=== PATIENT | male | born 1960 | race African-American/Black ===

== ENCOUNTER 2017-03-20 03:29 | Emergency (ER) | payer OTHER ==
[~2017-03-20] VITALS: Ht 165.1 cm; Wt 96.4 kg
[~2017-03-20 03:29] MED LIST: ADVAIR HFA120 INHALA IH; ALBUTEROL SULF8.5 GM IH; ATARAX,VISTARIL25 MG PO; BENADRYL25 MG PO; COMBIVENT RESPIM4 GM IH; DOXYCYCLINE HY100 M3 PO; DURICEF500 MG PO; FOLIC ACID1 MG PO; LORAZEPAM2 MG PO; PREDNISONE10 MG PO; PREDNISONE20 MG PO; PROVENTIL HFA6.7 GM IH; ROXICET 5-3251 EACH PO; SPIRIVA RESPIMAT4 GM IH; THERAGRAN1 TABLET PO; VITAMIN B-1100 MG PO; XANAX0.5 MG PO; XANAX1 MG PO; ZITHROMAX Z-PA250 MG PO
[2017-03-20 04:24] LABS: HEMATOCRIT 42.2 % (38.0-50.0); MCH 30.5 PG (29.0-34.0); MCHC 33.6 G/DL (30.0-36.0); MCV 90.8 FL (86-99); MEAN PLAT.VOLUME 9.7 uM^3 (9.0-12.4); PLATELET COUNT 126 K/uL (156-360); RBC DIS.WIDTH-CV 13.8 % (11.8-14.6); RBC DIS.WIDTH-SD 46.5 % (39-53); RED BLOOD COUNT 4.65 M/uL (4.00-5.50); WHITE BLOOD COUNT 8.2 K/uL (4.1-10.2)
[2017-03-20 04:28] LABS: CARBON DIOXIDE (BICARBONATE) 29.8 MEQ/L (20-31)
[2017-03-20 04:34] LABS: CHLORIDE 100 mEq/L (99-109); POTASSIUM 3.5 mEq/L (3.7-5.4); SODIUM 137 mEq/L (136-147)
[2017-03-20 04:36] LABS: GLUCOSE 98 mg/dL (70-99)
[2017-03-20 04:37] LABS: ANION GAP 11 MEQ/L (2-14)
[2017-03-20 04:40] LABS: GFR ESTIMATE (CALCULATED) > 59 mL/min/
[2017-03-20 04:41] LABS: UREA NITROGEN (BUN) 9 mg/dL (9-23)
[2017-03-20 04:45] LABS: TROP-I INTERPRETATION NEGATIVE; TROPONIN-I < 0.01 ng/mL (0.0-0.30)
[2017-03-20] MEDS ORDERED: PREDNISONE20 MG PO (05:01)
[2017-03-20] MEDS ORDERED: PROVENTIL HFA6.7 GM IH (05:01)
[2017-03-20 05:23] VITALS: BP 148/99
== END 2017-03-20 05:25 | disposition home or self-care (01) ==
LOC: EME 03:29
PROVIDERS: Emergency Medicine
DX: J44.1 Chronic obstructive pulmonary disease with (acute) exacerbation (principal); F17.200 Nicotine dependence, unspecified, uncomplicated
CPT/HCPCS: 71020; 80048; 82803; 83605; 83880; 84484; 85027; 87040; 93005; 94640; 99281; 99284

== ENCOUNTER 2017-03-30 18:16 | Inpatient (IN) | payer OTHER ==
[~2017-03-30] VITALS: Ht 165.1 cm; Wt 95.2 kg
[2017-03-30 20:45] LABS: CARBON DIOXIDE (BICARBONATE) 32.1 MEQ/L (20-31)
[2017-03-30 20:50] LABS: CHLORIDE 99 mEq/L (99-109); POTASSIUM 4.2 mEq/L (3.7-5.4); SODIUM 143 mEq/L (136-147)
[2017-03-30 20:51] LABS: MCH 31.1 PG (29.0-34.0); MCHC 33.6 G/DL (30.0-36.0); MCV 92.5 FL (86-99); MEAN PLAT.VOLUME 9.6 uM^3 (9.0-12.4); RBC DIS.WIDTH-SD 47.7 % (39-53); RED BLOOD COUNT 4.54 M/uL (4.00-5.50); WHITE BLOOD COUNT 14.7 K/uL (4.1-10.2)
[2017-03-30 20:52] LABS: GLUCOSE 132 mg/dL (70-99)
[2017-03-30 20:53] LABS: ANION GAP 17 MEQ/L (2-14)
[2017-03-30 20:55] LABS: GFR ESTIMATE (CALCULATED) > 59 mL/min/
[2017-03-30 20:56] LABS: UREA NITROGEN (BUN) 16 mg/dL (9-23)
[2017-03-30 21:03] LABS: TROP-I INTERPRETATION NEGATIVE; TROPONIN-I < 0.01 ng/mL (0.0-0.30)
[2017-03-30 21:13] LABS: PLATELET COUNT 196 K/uL (156-360)
[2017-03-30] MEDS ORDERED: PREDNISONE10 MG PO (21:28)
[2017-03-30] MEDS ORDERED: TUDORZA PRESS400 MCG IH (21:28)
[2017-03-30 23:39] LABS: BASE EXCESS 0.5 mEq/L (-3 to +3); BICARBONATE 28.4 mEq/L (22-26); CARBOXY HGB 2.1 % (0-5); COMMENTS - BLOOD GASES A+C+; DEVICE HHFNC; FI02 50 %; METHEMOGLOBIN 1.3 % (0-1.5); O2 FLOW 35 L/MIN; PCO2 59 mm Hg (35-45); PO2 89 mm Hg (80-100); SITE LR
[2017-03-30 23:40] LABS: TOTAL RESP RATE 24 resp/min; pH 7.29 (7.35-7.45)
[2017-03-31] VITALS (19 sets, daily range): BP systolic 138–180; BP diastolic 8–105
[2017-03-31 01:47] LABS: BASE EXCESS 1.7 mEq/L (-3 to +3); BICARBONATE 30.5 mEq/L (22-26); CARBOXY HGB 2.1 % (0-5); PO2 72 mm Hg (80-100)
[2017-03-31 01:48] LABS: COMMENTS - BLOOD GASES A+C+; DEVICE 840 MASK VENT; FI02 35 %; MODE SPONT; PCO2 68 mm Hg (35-45); SITE RR; TOTAL RESP RATE 21 resp/min; pH 7.26 (7.35-7.45)
[2017-03-31 06:33] LABS: EOSINOPHIL (%) 0 % (0-5); HEMATOCRIT 38.5 % (38.0-50.0); IMMATURE GRANULOCYTE (%) 0.3 % (0.0-0.7); INSTRUMENT ABS NEUTROPHIL CT 12.1 K/uL; LYMPHOCYTE COUNT 0.3 K/uL (1.0-2.8); MCV 93.9 FL (86-99); MEAN PLAT.VOLUME 9.7 uM^3 (9.0-12.4); MONOCYTE (%) 5.9 % (3-12); MONOCYTE COUNT 0.8 K/uL (0-0.8); NEUTROPHIL (%) 91.5 % (45-76); NEUTROPHIL COUNT 12.1 K/uL (1.8-6.4); PLATELET COUNT 158 K/uL (156-360); RBC DIS.WIDTH-SD 48.5 % (39-53); WHITE BLOOD COUNT 13.3 K/uL (4.1-10.2)
[2017-03-31 06:47] LABS: PROTHROMBIN TIME 9.8 (9.2-11.2); PTT 28.7 (25-32)
[2017-03-31 06:54] LABS: METH RESISTANT S AUREUS PCR NEGATIVE (NEGATIVE)
[2017-03-31 06:55] LABS: PROBE CHECK PASS; SPECIMEN PROCESSING CONTROL PASS
[2017-03-31 06:58] LABS: ANION GAP 10 MEQ/L (2-14); CHLORIDE 102 MEQ/L (99-109); GFR ESTIMATE (CALCULATED) > 59 mL/min/; GLUCOSE 159 mg/dL (70-99); POTASSIUM 4.1 MEQ/L (3.7-5.4); SAMPLE HEMOLYSIS CHECK 0; SAMPLE ICTERIC CHECK 0; SAMPLE LIPEMIA CHECK 0; SODIUM 141 MEQ/L (136-147); UREA NITROGEN (BUN) 13 mg/dL (9-23)
[2017-03-31 11:03] LABS: INTERNAL CONTROL VALID? YES
[2017-04-01] VITALS (15 sets, daily range): BP systolic 78–175; BP diastolic 53–97
[2017-04-01 05:28] LABS: EOSINOPHIL (%) 0 % (0-5); IMMATURE GRANULOCYTE (%) 0.4 % (0.0-0.7); INSTRUMENT ABS NEUTROPHIL CT 7.4 K/uL; LYMPHOCYTE COUNT 0.2 K/uL (1.0-2.8); MCH 31.3 PG (29.0-34.0); MCHC 33.1 G/DL (30.0-36.0); MCV 94.7 FL (86-99); MEAN PLAT.VOLUME 10.1 uM^3 (9.0-12.4); MONOCYTE (%) 3.3 % (3-12); MONOCYTE COUNT 0.3 K/uL (0-0.8); NEUTROPHIL COUNT 7.4 K/uL (1.8-6.4); PLATELET COUNT 147 K/uL (156-360); RBC DIS.WIDTH-CV 13.5 % (11.8-14.6); RBC DIS.WIDTH-SD 47.4 % (39-53); RED BLOOD COUNT 4.12 M/uL (4.00-5.50); WHITE BLOOD COUNT 7.9 K/uL (4.1-10.2)
[2017-04-01 05:54] LABS: ANION GAP 6 MEQ/L (2-14); CHLORIDE 99 MEQ/L (99-109); GFR ESTIMATE (CALCULATED) > 59 mL/min/; GLUCOSE 134 mg/dL (70-99); MAGNESIUM 2.1 mg/dl (1.3-2.7); POTASSIUM 4.7 MEQ/L (3.7-5.4); SAMPLE HEMOLYSIS CHECK 0; SAMPLE ICTERIC CHECK 0; SAMPLE LIPEMIA CHECK 0; SODIUM 137 MEQ/L (136-147); UREA NITROGEN (BUN) 11 mg/dL (9-23)
[2017-04-02 00:45] VITALS: BP 159/100
[2017-04-02 04:58] LABS: EOSINOPHIL (%) 0 % (0-5); HEMATOCRIT 43.8 % (38.0-50.0); IMMATURE GRANULOCYTE (%) 0.6 % (0.0-0.7); IMMATURE GRANULOCYTE COUNT 0.1 K/uL; INSTRUMENT ABS NEUTROPHIL CT 8.9 K/uL; LYMPHOCYTE COUNT 0.3 K/uL (1.0-2.8); MCH 30.6 PG (29.0-34.0); MCHC 32.9 G/DL (30.0-36.0); MCV 93.2 FL (86-99); MEAN PLAT.VOLUME 10.2 uM^3 (9.0-12.4); MONOCYTE COUNT 0.4 K/uL (0-0.8); NEUTROPHIL (%) 92.2 % (45-76); NEUTROPHIL COUNT 8.9 K/uL (1.8-6.4); PLATELET COUNT 170 K/uL (156-360); RBC DIS.WIDTH-CV 13.1 % (11.8-14.6); RBC DIS.WIDTH-SD 45.1 % (39-53); WHITE BLOOD COUNT 9.7 K/uL (4.1-10.2)
[2017-04-02 05:00] VITALS: BP 160/98
[2017-04-02 05:09] LABS: CHLORIDE 100 mEq/L (99-109); POTASSIUM 4.4 mEq/L (3.7-5.4); SODIUM 138 mEq/L (136-147)
[2017-04-02 05:11] LABS: GLUCOSE 134 mg/dL (70-99)
[2017-04-02 05:13] LABS: ANION GAP 7 MEQ/L (2-14)
[2017-04-02 05:15] LABS: GFR ESTIMATE (CALCULATED) > 59 mL/min/
[2017-04-02 05:16] LABS: UREA NITROGEN (BUN) 17 mg/dL (9-23)
[2017-04-02 08:00] VITALS: BP 154/99
[2017-04-02 12:12] LABS: POINT-OF-CARE METER ID UU13113731
[2017-04-02 12:35] VITALS: BP 149/80
[2017-04-02 16:45] VITALS: BP 155/97
[2017-04-02 20:00] VITALS: BP 156/86
[2017-04-03 01:45] VITALS: BP 165/106
[2017-04-03 04:15] VITALS: BP 137/102
[2017-04-03] MEDS ORDERED: FOLIC ACID1 MG PO (08:13)
[2017-04-03] MEDS ORDERED: PREDNISONE10 M1 PO (08:13)
[2017-04-03] MEDS ORDERED: NICOTINE PATCH1 EAC1 TD (08:13)
[2017-04-03] MEDS ORDERED: Thiamine,Vitamin B1 PO (08:13)
== END 2017-04-03 09:00 | disposition left against medical advice (07) | DRG 189 ==
LOC: EME 18:16 → 4WEST 03-31 02:22 → EDOF 03-31 02:22 → 4WEST 03-31 04:59
PROVIDERS: Emergency Medicine; Hospitalist
PROC: 5A09357 Assistance with Respiratory Ventilation, Less than 24 Consecutive Hours, Continuous Positive Airway Pressure (ICD-10-PCS; principal; 2017-03-31)
DX: J96.01 Acute respiratory failure with hypoxia (principal); J96.02 Acute respiratory failure with hypercapnia; J44.0 Chronic obstructive pulmonary disease with (acute) lower respiratory infection; J18.9 Pneumonia, unspecified organism; J44.1 Chronic obstructive pulmonary disease with (acute) exacerbation; E87.2 Acidosis; E83.39 Other disorders of phosphorus metabolism; E86.0 Dehydration; E83.52 Hypercalcemia; F10.239 Alcohol dependence with withdrawal, unspecified; I10 Essential (primary) hypertension; F41.9 Anxiety disorder, unspecified; K21.9 Gastro-esophageal reflux disease without esophagitis; Z59.0 Homelessness; E66.9 Obesity, unspecified; Z68.34 Body mass index [BMI] 34.0-34.9, adult; F31.9 Bipolar disorder, unspecified; F17.210 Nicotine dependence, cigarettes, uncomplicated
CPT/HCPCS: 36600; 71010; 71020; 71275; 80048; 82803; 82948; 83605; 83735; 83880; 84100; 84484; 85025; 85027; 85610; 85730; 87040; 87070; 87076; 87185; 87205; 87449; 87641; 93005; 94002; 94640; 94640 76; 94644; 94799; 99202; 99281; 99285; J0456; J0692; J0696; J1650; J2060; J2930; J3370; J7050; J7512; J7644; S0028

== ENCOUNTER 2017-04-11 14:55 | Inpatient (IN) | payer OTHER ==
[~2017-04-11] VITALS: Ht 162.6 cm; Wt 90.2 kg
[~2017-04-11 14:55] MED LIST changes: +NICOTINE PATCH1 EAC1 TD; +PREDNISONE10 M1 PO; +TUDORZA PRESS400 MCG IH; +Thiamine,Vitamin B1 PO
[2017-04-11 15:05] LABS: BASE EXCESS -1.1 mEq/L (-3 to +3); BICARBONATE 28.9 mEq/L (22-26); CARBOXY HGB 5.3 % (0-5); METHEMOGLOBIN 1.1 % (0-1.5); PCO2 74 mm Hg (35-45); PO2 100 mm Hg (80-100)
[2017-04-11 15:06] LABS: COMMENTS - BLOOD GASES A+C+; DEVICE NRBM; O2 FLOW 15 L/MIN; SITE RR
[2017-04-11 15:32] LABS: EOSINOPHIL (%) 0.2 % (0-5); HEMATOCRIT 40.5 % (38.0-50.0); IMMATURE GRANULOCYTE (%) 0.7 % (0.0-0.7); IMMATURE GRANULOCYTE COUNT 0.1 K/uL; INSTRUMENT ABS NEUTROPHIL CT 8.7 K/uL; LYMPHOCYTE COUNT 1.2 K/uL (1.0-2.8); MCH 30.5 PG (29.0-34.0); MCHC 32.6 G/DL (30.0-36.0); MCV 93.5 FL (86-99); MONOCYTE (%) 11.2 % (3-12); MONOCYTE COUNT 1.3 K/uL (0-0.8); NEUTROPHIL (%) 76.8 % (45-76); NEUTROPHIL COUNT 8.7 K/uL (1.8-6.4); NRBC (%) 0.3 /100 WBC (0-0); PLATELET COUNT 212 K/uL (156-360); RBC DIS.WIDTH-CV 13.2 % (11.8-14.6); RBC DIS.WIDTH-SD 45.3 % (39-53); RED BLOOD COUNT 4.33 M/uL (4.00-5.50); WHITE BLOOD COUNT 11.3 K/uL (4.1-10.2)
[2017-04-11 15:55] LABS: CHLORIDE 91 mEq/L (99-109); POTASSIUM 5.5 mEq/L (3.7-5.4); SODIUM 126 mEq/L (136-147)
[2017-04-11 15:57] LABS: GLUCOSE 112 mg/dL (70-99)
[2017-04-11 15:58] LABS: ANION GAP 16 MEQ/L (2-14)
[2017-04-11 15:59] LABS: TOTAL BILIRUBIN 0.5 mg/dL (0.0-1.0)
[2017-04-11 16:00] LABS: SERUM ETHYL ALCOHOL 100 mg/dL
[2017-04-11 16:01] LABS: ALKALINE PHOSPHATASE 86 IU/L (3-129); GFR ESTIMATE (CALCULATED) > 59 mL/min/
[2017-04-11 16:02] LABS: UREA NITROGEN (BUN) 14 mg/dL (9-23)
[2017-04-11 16:07] LABS: TROP-I INTERPRETATION NEGATIVE; TROPONIN-I 0.08 ng/mL (0.0-0.30)
[2017-04-11 17:04] LABS: BASE EXCESS 1.1 mEq/L (-3 to +3); BICARBONATE 32.5 mEq/L (22-26); CARBOXY HGB 4.4 % (0-5); METHEMOGLOBIN 1.2 % (0-1.5); PO2 117 mm Hg (80-100)
[2017-04-11 17:05] LABS: COMMENTS - BLOOD GASES A+C+; DEVICE 980 PB MASK; FI02 80 %; MODE SPONT NIV; PCO2 89 mm Hg (35-45); PEEP 5 CM/H20; PRES. SUPPORT 12 CM/H2O; SITE RR; TOTAL RESP RATE 17 resp/min; pH 7.17 (7.35-7.45)
[2017-04-11 17:59] LABS: ADD MIUA? YES; BILIRUBIN NEGATIVE; BLOOD SMALL; COLOR YELLOW ((YELLOW)); GLUCOSE (STRIP) NEGATIVE; KETONES 5; LEUKOCYTES NEGATIVE; NITRITE NEGATIVE; PROTEIN (STRIP) 100; SPECIFIC GRAVITY 1.014 (1.000-1.030); UROBILINOGEN 0.2 MG/DL (0.2-1.0)
[2017-04-11 18:02] LABS: BACTERIA RARE /HPF; EPITHELIAL CELLS RARE /HPF; MUCUS 1+ /LPF; RED BLOOD CELLS 0-5 /HPF (0-5); UCUL ADDED? NO; WHITE BLOOD CELLS 0-5 /HPF (0-5)
[2017-04-11 18:12] LABS: COCAINE PRESUMPTIVE POSITIVE (150 ng/mL); METHAMPHETAMINE NEGATIVE (500 ng/mL); PHENCYCLIDINE NEGATIVE (25 ng/mL); THC CANNABINOIDS NEGATIVE (50 ng/mL)
[2017-04-11 18:13] LABS: ADD MEDTOX COMMENT Y; AMPHETAMINE NEGATIVE (500 ng/mL); BARBITURATES NEGATIVE (200 ng/mL); BENZODIAZEPINES PRESUMPTIVE POSITIVE (150 ng/mL); INTERNAL CONTROLS VALID? YES; METHADONE NEGATIVE (200 ng/mL); OPIATES (MORPHINE) NEGATIVE (100 ng/mL); OXYCODONE NEGATIVE (100 ng/mL); PROPOXYPHENE NEGATIVE (300 ng/mL); TRICYCLIC ANTIDEPRESSANTS NEGATIVE (300 ng/mL)
[2017-04-11 19:00] LABS: BENZODIAZEPINES, URINE SCREEN POSITIVE (200 ng/mL)
[2017-04-11 20:25] VITALS: BP 143/78
[2017-04-11 20:30] VITALS: BP 164/131
[2017-04-11 20:48] LABS: BASE EXCESS 4.8 mEq/L (-3 to +3); CARBOXY HGB 3.1 % (0-5); METHEMOGLOBIN 1.6 % (0-1.5)
[2017-04-11 20:49] LABS: COMMENTS - BLOOD GASES A+C+; DEVICE VENT; FI02 65 %; MECHANICAL RATE 20 resp/min; MODE A/C; PCO2 58 mm Hg (35-45); PEEP 5 CM/H20; PO2 83 mm Hg (80-100); SITE RR; TIDAL VOLUME 500 ML; TOTAL RESP RATE 20 resp/min; pH 7.35 (7.35-7.45)
[2017-04-11 21:30] VITALS: BP 129/67
[2017-04-11 21:37] LABS: INTER. NORMALIZED RATIO 1.1; PROTHROMBIN TIME 11.4 (9.2-11.2); PTT 27.9 (25-32)
[2017-04-11 21:57] LABS: BASE EXCESS 5.3 mEq/L (-3 to +3); BICARBONATE 31.9 mEq/L (22-26); CARBOXY HGB 3.1 % (0-5); METHEMOGLOBIN 1.7 % (0-1.5); PCO2 54 mm Hg (35-45); PO2 80 mm Hg (80-100); pH 7.38 (7.35-7.45)
[2017-04-11 21:58] LABS: COMMENTS - BLOOD GASES A+C+; DEVICE 980; FI02 60 %; MECHANICAL RATE 20 resp/min; MODE A/C; PEEP 10 CM/H20; SITE LR; TIDAL VOLUME 500 ML
[2017-04-11 21:59] LABS: ANION GAP 9 MEQ/L (2-14); CHLORIDE 91 MEQ/L (99-109); MAGNESIUM 1.9 mg/dl (1.3-2.7); POTASSIUM 5.3 MEQ/L (3.7-5.4); SAMPLE HEMOLYSIS CHECK 0; SAMPLE ICTERIC CHECK 0; SAMPLE LIPEMIA CHECK 0; SODIUM 127 MEQ/L (136-147); TOTAL BILIRUBIN 0.6 MG/DL (0.0-1.0)
[2017-04-11 22:00] VITALS: BP 144/79
[2017-04-11 22:01] LABS: METH RESISTANT S AUREUS PCR NEGATIVE (NEGATIVE)
[2017-04-11 22:05] LABS: ALKALINE PHOSPHATASE 74 IU/L (3-129); GFR ESTIMATE (CALCULATED) > 59 mL/min/; GLUCOSE 112 mg/dL (70-99); UREA NITROGEN (BUN) 11 mg/dL (9-23)
[2017-04-11 22:08] LABS: PROBE CHECK PASS; SPECIMEN PROCESSING CONTROL PASS
[2017-04-11 23:00] VITALS: BP 130/76
[2017-04-12] VITALS (22 sets, daily range): BP systolic 91–128; BP diastolic 63–92
[2017-04-12 01:44] LABS: POINT-OF-CARE METER ID UU14208751
[2017-04-12 04:47] LABS: MCH 30.5 PG (29.0-34.0); MCHC 33.2 G/DL (30.0-36.0); MCV 91.9 FL (86-99); NRBC (%) 0.5 /100 WBC (0-0); PLATELET COUNT 228 K/uL (156-360); RBC DIS.WIDTH-CV 13.1 % (11.8-14.6); RBC DIS.WIDTH-SD 44.2 % (39-53); RED BLOOD COUNT 4.46 M/uL (4.00-5.50); WHITE BLOOD COUNT 5.5 K/uL (4.1-10.2)
[2017-04-12 05:13] LABS: CHLORIDE 96 mEq/L (99-109); POTASSIUM 5.4 mEq/L (3.7-5.4)
[2017-04-12 05:15] LABS: TROP-I INTERPRETATION NEGATIVE; TROPONIN-I 0.03 ng/mL (0.0-0.30)
[2017-04-12 05:16] LABS: GLUCOSE 134 mg/dL (70-99)
[2017-04-12 05:17] LABS: ANION GAP 11 MEQ/L (2-14)
[2017-04-12 05:18] LABS: TOTAL BILIRUBIN 0.6 mg/dL (0.0-1.0)
[2017-04-12 05:19] LABS: ALKALINE PHOSPHATASE 77 IU/L (3-129); GFR ESTIMATE (CALCULATED) > 59 mL/min/
[2017-04-12 05:20] LABS: UREA NITROGEN (BUN) 11 mg/dL (9-23)
[2017-04-12 05:23] LABS: SODIUM 134 mEq/L (136-147)
[2017-04-12 11:45] LABS: HBSG INDEX 0.25
[2017-04-12 11:46] LABS: ANTI-HEPATITIS A VIRUS (IGM) Nonreactive; HAV INDEX 0.16; HPCA INDEX 0.07
[2017-04-12 11:47] LABS: ANTI-HEPATITIS B CORE (IGM) Nonreactive; HBC IgM INDEX 0.05
[2017-04-12 12:10] LABS: POINT-OF-CARE METER ID UU14208751
[2017-04-12 17:13] LABS: POINT-OF-CARE METER ID UU14208751; POINT-OF-CARE USER ID 606021424
[2017-04-12 23:44] LABS: POINT-OF-CARE METER ID UU13113803
[2017-04-13] VITALS (20 sets, daily range): BP systolic 91–130; BP diastolic 55–86
[2017-04-13 05:40] LABS: POINT-OF-CARE METER ID UU13113731
[2017-04-13 08:25] LABS: BASE EXCESS 8.8 mEq/L (-3 to +3); BICARBONATE 34.1 mEq/L (22-26); CARBOXY HGB 2.1 % (0-5); METHEMOGLOBIN 1.5 % (0-1.5); PO2 71 mm Hg (80-100); pH 7.46 (7.35-7.45)
[2017-04-13 08:26] LABS: COMMENTS - BLOOD GASES NAC+; CONTINUOUS POS AIRWAY PRESSURE 5 cm H2O; DEVICE 980; FI02 40 %; MODE SPONT; PCO2 48 mm Hg (35-45); PRES. SUPPORT 15 CM/H2O; SITE RR; TOTAL RESP RATE 21 resp/min
[2017-04-13 09:12] LABS: ANION GAP 5 MEQ/L (2-14); GFR ESTIMATE (CALCULATED) > 59 mL/min/; GLUCOSE 109 mg/dL (70-99); SAMPLE HEMOLYSIS CHECK 0; SAMPLE ICTERIC CHECK 0; SAMPLE LIPEMIA CHECK 0; SODIUM 138 MEQ/L (136-147); UREA NITROGEN (BUN) 12 mg/dL (9-23)
[2017-04-13 09:13] LABS: CHLORIDE 101 MEQ/L (99-109); MAGNESIUM 2.4 mg/dl (1.3-2.7); POTASSIUM 4.2 MEQ/L (3.7-5.4)
[2017-04-13 13:02] LABS: POINT-OF-CARE USER ID 606021424
[2017-04-13 17:31] LABS: POINT-OF-CARE METER ID UU14208751
[2017-04-14] VITALS (24 sets, daily range): BP systolic 91–147; BP diastolic 63–93
[2017-04-14 05:36] LABS: POINT-OF-CARE METER ID UU13113731
[2017-04-14 08:19] LABS: POINT-OF-CARE METER ID UU13113803
[2017-04-14 10:44] LABS: BASE EXCESS 6.6 mEq/L (-3 to +3); BICARBONATE 31.9 mEq/L (22-26); CARBOXY HGB 2.3 % (0-5); METHEMOGLOBIN 1.4 % (0-1.5); PCO2 47 mm Hg (35-45); pH 7.44 (7.35-7.45)
[2017-04-14 10:55] LABS: PO2 88 mm Hg (80-100); SITE LR
[2017-04-14 10:56] LABS: COMMENTS - BLOOD GASES NAC+; DEVICE 980; FI02 70 %; MECHANICAL RATE 20 resp/min; MODE A/C; PEEP 7.5 CM/H20; TIDAL VOLUME 500 ML; TOTAL RESP RATE 20 resp/min
[2017-04-14 11:16] LABS: GFR ESTIMATE (CALCULATED) > 59 mL/min/; UREA NITROGEN (BUN) 10 mg/dL (9-23)
[2017-04-14 11:56] LABS: POINT-OF-CARE METER ID UU13113731
[2017-04-14 18:06] LABS: POINT-OF-CARE METER ID UU13113731
[2017-04-15] VITALS (24 sets, daily range): BP systolic 0–160; BP diastolic 0–99
[2017-04-15 05:34] LABS: HEMATOCRIT 38.6 % (38.0-50.0); MCH 31.9 PG (29.0-34.0); MCHC 33.4 G/DL (30.0-36.0); MCV 95.5 FL (86-99); MEAN PLAT.VOLUME 9.6 uM^3 (9.0-12.4); PLATELET COUNT 161 K/uL (156-360); RBC DIS.WIDTH-CV 14.7 % (11.8-14.6); RBC DIS.WIDTH-SD 50.2 % (39-53); RED BLOOD COUNT 4.04 M/uL (4.00-5.50); WHITE BLOOD COUNT 7.8 K/uL (4.1-10.2)
[2017-04-15 06:04] LABS: ANION GAP 6 MEQ/L (2-14); CHLORIDE 104 MEQ/L (99-109); GFR ESTIMATE (CALCULATED) > 59 mL/min/; GLUCOSE 118 mg/dL (70-99); POTASSIUM 3.6 MEQ/L (3.7-5.4); SAMPLE HEMOLYSIS CHECK 0; SAMPLE ICTERIC CHECK 0; SAMPLE LIPEMIA CHECK 0; SODIUM 140 MEQ/L (136-147); UREA NITROGEN (BUN) 8 mg/dL (9-23)
[2017-04-15 06:06] LABS: POINT-OF-CARE METER ID UU13113748
[2017-04-15 12:36] LABS: MAGNESIUM 2.1 mg/dl (1.3-2.7)
[2017-04-15 13:16] LABS: POINT-OF-CARE METER ID UU13113748
[2017-04-15 18:33] LABS: POINT-OF-CARE METER ID UU13113748
[2017-04-16] VITALS (16 sets, daily range): BP systolic 117–153; BP diastolic 77–100
[2017-04-16 00:13] LABS: POINT-OF-CARE METER ID UU13113731
[2017-04-16 06:04] LABS: EOSINOPHIL (%) 5.4 % (0-5); EOSINOPHIL COUNT 0.3 K/uL (0-0.3); HEMATOCRIT 41.5 % (38.0-50.0); IMMATURE GRANULOCYTE (%) 0.3 % (0.0-0.7); INSTRUMENT ABS NEUTROPHIL CT 4.7 K/uL; LYMPHOCYTE COUNT 0.9 K/uL (1.0-2.8); MCH 30.2 PG (29.0-34.0); MCHC 31.8 G/DL (30.0-36.0); MEAN PLAT.VOLUME 9.8 uM^3 (9.0-12.4); MONOCYTE (%) 7.1 % (3-12); MONOCYTE COUNT 0.5 K/uL (0-0.8); NEUTROPHIL (%) 73.5 % (45-76); NEUTROPHIL COUNT 4.7 K/uL (1.8-6.4); PLATELET COUNT 160 K/uL (156-360); RBC DIS.WIDTH-CV 14.3 % (11.8-14.6); RBC DIS.WIDTH-SD 49.1 % (39-53); RED BLOOD COUNT 4.37 M/uL (4.00-5.50); WHITE BLOOD COUNT 6.4 K/uL (4.1-10.2)
[2017-04-16 06:20] LABS: POINT-OF-CARE METER ID UU14208751
[2017-04-16 06:22] LABS: ANION GAP 8 MEQ/L (2-14); CHLORIDE 105 MEQ/L (99-109); GFR ESTIMATE (CALCULATED) > 59 mL/min/; GLUCOSE 123 mg/dL (70-99); MAGNESIUM 2.2 mg/dl (1.3-2.7); POTASSIUM 4.1 MEQ/L (3.7-5.4); SAMPLE HEMOLYSIS CHECK 1; SAMPLE ICTERIC CHECK 0; SAMPLE LIPEMIA CHECK 0; SODIUM 143 MEQ/L (136-147); UREA NITROGEN (BUN) 6 mg/dL (9-23)
[2017-04-16 17:59] LABS: POINT-OF-CARE METER ID UU14208751
[2017-04-17] VITALS: BP 165/99
[2017-04-17 01:00] VITALS: BP 135/88
[2017-04-17 02:00] VITALS: BP 151/96
[2017-04-17 03:00] VITALS: BP 171/102
[2017-04-17 08:54] LABS: ANION GAP 8 MEQ/L (2-14); CHLORIDE 106 MEQ/L (99-109); GFR ESTIMATE (CALCULATED) > 59 mL/min/; GLUCOSE 98 mg/dL (70-99); MAGNESIUM 2.1 mg/dl (1.3-2.7); POTASSIUM 4.8 MEQ/L (3.7-5.4); SAMPLE HEMOLYSIS CHECK 0; SAMPLE ICTERIC CHECK 0; SAMPLE LIPEMIA CHECK 0; SODIUM 142 MEQ/L (136-147); UREA NITROGEN (BUN) 7 mg/dL (9-23)
[2017-04-17 10:07] LABS: HEMATOCRIT 43.7 % (38.0-50.0); MCHC 31.8 G/DL (30.0-36.0); MCV 94.2 FL (86-99); MEAN PLAT.VOLUME 9.4 uM^3 (9.0-12.4); PLATELET COUNT 149 K/uL (156-360); RBC DIS.WIDTH-CV 13.7 % (11.8-14.6); RED BLOOD COUNT 4.64 M/uL (4.00-5.50); WHITE BLOOD COUNT 7.1 K/uL (4.1-10.2)
[2017-04-17 10:53] LABS: ABS NEUTROPHIL COUNT 4.9; ANISOCYTOSIS 1+; BASOPHILS 1.8 %; EOSINOPHIL ABS CT 0.6; INSTRUMENT ABS NEUTROPHIL CT 4.6 K/uL; LYMPHOCYTES 16.1 % (15.0-45.0); MACROCYTES 1+; PLAT.SUFFICIENCY ADEQUATE; POIKILOCYTOSIS 1+; SEG.NEUTROPHILS 68.7 % (46.0-76.0)
[2017-04-17 19:00] VITALS: BP 133/88
[2017-04-17 23:00] VITALS: BP 155/98
[2017-04-18] VITALS (9 sets, daily range): BP systolic 114–142; BP diastolic 71–89
[2017-04-18 05:39] LABS: HEMATOCRIT 40.1 % (38.0-50.0); MCHC 32.4 G/DL (30.0-36.0); MCV 92.4 FL (86-99); MEAN PLAT.VOLUME 9.3 uM^3 (9.0-12.4); PLATELET COUNT 150 K/uL (156-360); RBC DIS.WIDTH-CV 13.5 % (11.8-14.6); RBC DIS.WIDTH-SD 45.7 % (39-53); RED BLOOD COUNT 4.34 M/uL (4.00-5.50); WHITE BLOOD COUNT 8.1 K/uL (4.1-10.2)
[2017-04-18 06:08] LABS: ANION GAP 8 MEQ/L (2-14); CHLORIDE 105 MEQ/L (99-109); GFR ESTIMATE (CALCULATED) > 59 mL/min/; GLUCOSE 96 mg/dL (70-99); POTASSIUM 3.6 MEQ/L (3.7-5.4); SAMPLE HEMOLYSIS CHECK 0; SAMPLE ICTERIC CHECK 0; SAMPLE LIPEMIA CHECK 0; SODIUM 141 MEQ/L (136-147); UREA NITROGEN (BUN) 8 mg/dL (9-23)
[2017-04-18 07:09] LABS: EOSINOPHIL COUNT 0.4 K/uL (0-0.3); IMMATURE GRANULOCYTE (%) 0.2 % (0.0-0.7); INSTRUMENT ABS NEUTROPHIL CT 5.1 K/uL; LYMPHOCYTE COUNT 1.8 K/uL (1.0-2.8); MONOCYTE (%) 8.9 % (3-12); MONOCYTE COUNT 0.7 K/uL (0-0.8); NEUTROPHIL (%) 63.4 % (45-76); NEUTROPHIL COUNT 5.1 K/uL (1.8-6.4)
[2017-04-19 02:37] VITALS: BP 166/100
[2017-04-19 06:32] LABS: EOSINOPHIL (%) 4.4 % (0-5); EOSINOPHIL COUNT 0.4 K/uL (0-0.3); IMMATURE GRANULOCYTE (%) 0.3 % (0.0-0.7); LYMPHOCYTE COUNT 1.9 K/uL (1.0-2.8); MCH 29.7 PG (29.0-34.0); MCHC 31.8 G/DL (30.0-36.0); MCV 93.2 FL (86-99); MEAN PLAT.VOLUME 9.9 uM^3 (9.0-12.4); MONOCYTE (%) 7.5 % (3-12); MONOCYTE COUNT 0.7 K/uL (0-0.8); NEUTROPHIL (%) 66.6 % (45-76); PLATELET COUNT 176 K/uL (156-360); RBC DIS.WIDTH-CV 13.9 % (11.8-14.6); RBC DIS.WIDTH-SD 47.2 % (39-53); RED BLOOD COUNT 4.72 M/uL (4.00-5.50)
[2017-04-19 07:01] LABS: ANION GAP 10 MEQ/L (2-14); CHLORIDE 105 MEQ/L (99-109); GFR ESTIMATE (CALCULATED) > 59 mL/min/; GLUCOSE 100 mg/dL (70-99); MAGNESIUM 2.1 mg/dl (1.3-2.7); SAMPLE HEMOLYSIS CHECK 0; SAMPLE ICTERIC CHECK 0; SAMPLE LIPEMIA CHECK 0; SODIUM 140 MEQ/L (136-147); UREA NITROGEN (BUN) 6 mg/dL (9-23)
[2017-04-19 07:07] LABS: POTASSIUM 4.4 MEQ/L (3.7-5.4)
[2017-04-19 08:01] VITALS: BP 171/101
[2017-04-19 12:17] VITALS: BP 144/78
[2017-04-19 17:01] VITALS: BP 142/89
[2017-04-19 19:15] VITALS: BP 142/90
== END 2017-04-19 22:49 | disposition left against medical advice (07) | DRG 208 ==
LOC: EME → EDBD 14:55 → EME 14:55 → EDOF 18:26 → 4WEST 18:26 → 5EAST 04-18 17:02
PROVIDERS: Emergency Medicine; Internal Medicine; Internal Medicine Critical Care Medicine; Internal Medicine Nephrology; Obstetrics & Gynecology
DX: J96.01 Acute respiratory failure with hypoxia (principal); J15.9 Unspecified bacterial pneumonia; F10.231 Alcohol dependence with withdrawal delirium; J44.0 Chronic obstructive pulmonary disease with (acute) lower respiratory infection; J44.1 Chronic obstructive pulmonary disease with (acute) exacerbation; I48.92 Unspecified atrial flutter; E66.9 Obesity, unspecified; Z68.33 Body mass index [BMI] 33.0-33.9, adult; E87.1 Hypo-osmolality and hyponatremia; E87.2 Acidosis; E87.5 Hyperkalemia; E87.6 Hypokalemia; E87.70 Fluid overload, unspecified; E87.8 Other disorders of electrolyte and fluid balance, not elsewhere classified; F14.10 Cocaine abuse, uncomplicated; F17.200 Nicotine dependence, unspecified, uncomplicated; F43.10 Post-traumatic stress disorder, unspecified; I10 Essential (primary) hypertension; Z87.828 Personal history of other (healed) physical injury and trauma; R60.0 Localized edema; R73.9 Hyperglycemia, unspecified
CPT/HCPCS: 36600; 71010; 80048; 80053; 80074; 80202; 81003; 82565; 82803; 82948; 83735; 83880; 83935; 84100; 84300; 84484; 84520; 84999; 85025; 85027; 85610; 85730; 87070; 87077; 87106; 87181; 87185; 87205; 87641; 93005; 93306; 93971; 94002; 94003; 94640; 94640 76; 94760; 94799; 99202; 99281; 99285; C9113; G0480; J0153; J0696; J1630; J1644; J1815; J1940; J2060; J2250; J2310; J2405; J2543; J2704; J2765; J2930; J3010; J3360; J3370; J3411; J3480; J7030; J7050; J7120; S0028

== ENCOUNTER 2018-01-13 13:01 | Emergency (ER) | payer OTHER ==
[~2018-01-13] VITALS: Ht 165.1 cm; Wt 82.9 kg
[2018-01-13 13:41] LABS: HEMATOCRIT 40.4 % (38.0-50.0); HEMOGLOBIN 13.9 G/DL (12.5-16.6); MCH 31.4 PG (29.0-34.0); MCHC 34.4 G/DL (30.0-36.0); MCV 91.2 FL (86-99); PLATELET COUNT 222 K/uL (156-360); RBC DIS.WIDTH-CV 14.4 % (11.8-14.6); RBC DIS.WIDTH-SD 47.9 % (39-53); RED BLOOD COUNT 4.43 M/uL (4.00-5.50); WHITE BLOOD COUNT 6.8 K/uL (4.1-10.2)
[2018-01-13 14:01] LABS: CHLORIDE 99 mEq/L (99-109); POTASSIUM 3.5 mEq/L (3.7-5.4); SODIUM 140 mEq/L (136-147)
[2018-01-13 14:03] LABS: GLUCOSE 98 mg/dL (70-99)
[2018-01-13 14:07] LABS: CREATININE 0.7 mg/dL (0.6-1.3); GFR ESTIMATE (CALCULATED) > 59 mL/min/ (58.99-99999)
[2018-01-13 14:08] LABS: UREA NITROGEN (BUN) 7 mg/dL (9-23)
[2018-01-13] MEDS ORDERED: PREDNISONE50 MG PO (15:15)
[2018-01-13] MEDS ORDERED: PROVENTIL HFA6.7 GM IH (15:15)
[2018-01-13 15:26] VITALS: BP 167/106
== END 2018-01-13 15:32 | disposition home or self-care (01) ==
LOC: EME 13:01
DX: J44.9 Chronic obstructive pulmonary disease, unspecified (principal); F32.9 Major depressive disorder, single episode, unspecified; F41.9 Anxiety disorder, unspecified; I50.9 Heart failure, unspecified; F17.200 Nicotine dependence, unspecified, uncomplicated
CPT/HCPCS: 71046; 80048; 85027; 94640; 99281; 99285; J7512; J7644

== ENCOUNTER 2018-01-24 20:42 | Inpatient (IN) | payer OTHER ==
[~2018-01-24] VITALS: Ht 165.1 cm; Wt 98.9 kg
[~2018-01-24 20:42] MED LIST changes: +PREDNISONE50 MG PO
[2018-01-24 21:07] LABS: BASE EXCESS 8.2 mEq/L (-3 to +3); BICARBONATE 35.5 mEq/L (22-26); CARBOXY HGB 6.3 % (0-5); METHEMOGLOBIN 1.2 % (0-1.5); PO2 84 mm Hg (80-100); pH 7.38 (7.35-7.45)
[2018-01-24 21:08] LABS: COMMENTS - BLOOD GASES C+; DEVICE NEBULIZER TX; O2 FLOW 6 L/MIN; PCO2 60 mm Hg (35-45); SITE RR; TOTAL RESP RATE 24 resp/min
[2018-01-24 22:01] LABS: HEMATOCRIT 40.9 % (38.0-50.0); HEMOGLOBIN 14.1 G/DL (12.5-16.6); MCH 33.1 PG (29.0-34.0); MCHC 34.5 G/DL (30.0-36.0); RBC DIS.WIDTH-SD 56.6 % (39-53); RED BLOOD COUNT 4.26 M/uL (4.00-5.50); WHITE BLOOD COUNT 7.2 K/uL (4.1-10.2)
[2018-01-24 22:09] LABS: ALBUMIN 3.8 g/dL (3.2-4.8)
[2018-01-24 22:10] LABS: CHLORIDE 102 mEq/L (99-109); POTASSIUM 3.6 mEq/L (3.7-5.4); SODIUM 143 mEq/L (136-147)
[2018-01-24 22:12] LABS: GLUCOSE 94 mg/dL (70-99)
[2018-01-24 22:15] LABS: ALKALINE PHOSPHATASE 74 IU/L (3-129)
[2018-01-24 22:16] LABS: CREATININE 0.7 mg/dL (0.6-1.3); GFR ESTIMATE (CALCULATED) > 59 mL/min/ (58.99-99999)
[2018-01-24 22:17] LABS: AST (GOT) 38 IU/L (2-34); UREA NITROGEN (BUN) 8 mg/dL (9-23)
[2018-01-24 22:18] LABS: ALT (GPT) 22 IU/L (3-49); TROP-I INTERPRETATION NEGATIVE; TROPONIN-I < 0.01 ng/mL (0.0-0.30)
[2018-01-24 22:37] LABS: HEMATOLOGY COMMENT 1 SN; PLAT.SUFFICIENCY DECREASED; PLATELET COUNT 105 K/uL (156-360)
[2018-01-25] VITALS (7 sets, daily range): BP systolic 129–182; BP diastolic 79–97
[2018-01-25] MEDS ORDERED: PREDNISONE50 MG PO (00:11)
[2018-01-25 01:58] LABS: URIC ACID 7.5 mg/dL (3.1-9.2)
[2018-01-25 02:25] LABS: C-REACTIVE PROTEIN 3.7 MG/L (0-10)
[2018-01-25 05:27] LABS: APPEARANCE CLEAR ((CLEAR)); BILIRUBIN NEGATIVE; BLOOD NEGATIVE; COLOR YELLOW ((YELLOW)); GLUCOSE (STRIP) >=500; KETONES 5; LEUKOCYTES NEGATIVE; NITRITE NEGATIVE; PROTEIN (STRIP) 30; SPECIFIC GRAVITY 1.033 (1.000-1.030); UCUL ADDED? NO
[2018-01-25 06:21] LABS: HEMATOCRIT 39.2 % (38.0-50.0); HEMOGLOBIN 12.8 G/DL (12.5-16.6); MCH 31.8 PG (29.0-34.0); MCHC 32.7 G/DL (30.0-36.0); MCV 97.5 FL (86-99); PLATELET COUNT 86 K/uL (156-360); RBC DIS.WIDTH-CV 15.9 % (11.8-14.6); RBC DIS.WIDTH-SD 58.4 % (39-53); RED BLOOD COUNT 4.02 M/uL (4.00-5.50); WHITE BLOOD COUNT 2.2 K/uL (4.1-10.2)
[2018-01-25 06:27] LABS: INTER. NORMALIZED RATIO 1.1
[2018-01-25 06:29] LABS: PTT 26.4 SEC (25-37)
[2018-01-25 06:44] LABS: CHLORIDE 100 MEQ/L (99-109); CREATININE 0.6 MG/DL (0.6-1.3); GFR ESTIMATE (CALCULATED) > 59 mL/min/ (58.99-99999); POTASSIUM 3.5 MEQ/L (3.7-5.4); SODIUM 139 MEQ/L (136-147); UREA NITROGEN (BUN) 8 mg/dL (9-23)
[2018-01-25 07:02] LABS: GLUCOSE 288 mg/dL (70-99)
[2018-01-26] VITALS (7 sets, daily range): BP systolic 144–171; BP diastolic 78–106
[2018-01-26 05:58] LABS: HEMATOCRIT 38.6 % (38.0-50.0); MCH 32.4 PG (29.0-34.0); MCHC 33.7 G/DL (30.0-36.0); MCV 96.3 FL (86-99); NRBC (%) 0.3 /100 WBC (0-0); PLATELET COUNT 79 K/uL (156-360); RBC DIS.WIDTH-CV 15.2 % (11.8-14.6); RBC DIS.WIDTH-SD 54.5 % (39-53); RED BLOOD COUNT 4.01 M/uL (4.00-5.50); WHITE BLOOD COUNT 7.1 K/uL (4.1-10.2)
[2018-01-26 06:50] LABS: CHLORIDE 102 MEQ/L (99-109); CREATININE 0.7 MG/DL (0.6-1.3); GFR ESTIMATE (CALCULATED) > 59 mL/min/ (58.99-99999); GLUCOSE 153 mg/dL (70-99); SODIUM 138 MEQ/L (136-147); UREA NITROGEN (BUN) 8 mg/dL (9-23)
[2018-01-26 06:53] LABS: POTASSIUM 4.4 MEQ/L (3.7-5.4)
[2018-01-27 04:33] VITALS: BP 137/89
[2018-01-27 05:18] LABS: HEMATOCRIT 39.7 % (38.0-50.0); HEMOGLOBIN 13.4 G/DL (12.5-16.6); MCH 32.8 PG (29.0-34.0); MCHC 33.8 G/DL (30.0-36.0); MCV 97.3 FL (86-99); PLATELET COUNT 71 K/uL (156-360); RBC DIS.WIDTH-CV 14.6 % (11.8-14.6); RBC DIS.WIDTH-SD 53.1 % (39-53); RED BLOOD COUNT 4.08 M/uL (4.00-5.50); WHITE BLOOD COUNT 8.1 K/uL (4.1-10.2)
[2018-01-27 06:05] LABS: CHLORIDE 101 MEQ/L (99-109); CREATININE 0.7 MG/DL (0.6-1.3); GFR ESTIMATE (CALCULATED) > 59 mL/min/ (58.99-99999); GLUCOSE 148 mg/dL (70-99); MAGNESIUM 1.5 mg/dl (1.3-2.7); POTASSIUM 4.1 MEQ/L (3.7-5.4); SODIUM 138 MEQ/L (136-147); UREA NITROGEN (BUN) 9 mg/dL (9-23)
[2018-01-27 07:10] VITALS: BP 141/84
[2018-01-27 11:27] VITALS: BP 145/82
[2018-01-27 16:24] VITALS: BP 162/85
[2018-01-27 20:47] VITALS: BP 121/78
[2018-01-27 23:20] VITALS: BP 161/94
[2018-01-28 03:24] VITALS: BP 107/57
[2018-01-28 07:49] VITALS: BP 124/71
[2018-01-28 12:07] VITALS: BP 122/90
[2018-01-28 15:26] VITALS: BP 135/79
[2018-01-28 20:04] VITALS: BP 143/86
[2018-01-29] VITALS (7 sets, daily range): BP systolic 133–173; BP diastolic 71–103
[2018-01-29 05:19] LABS: HEMATOCRIT 40.4 % (38.0-50.0); HEMOGLOBIN 13.2 G/DL (12.5-16.6); MCH 32.3 PG (29.0-34.0); MCHC 32.7 G/DL (30.0-36.0); MCV 98.8 FL (86-99); PLATELET COUNT 84 K/uL (156-360); RBC DIS.WIDTH-CV 14.4 % (11.8-14.6); RBC DIS.WIDTH-SD 52.7 % (39-53); RED BLOOD COUNT 4.09 M/uL (4.00-5.50); WHITE BLOOD COUNT 8.3 K/uL (4.1-10.2)
[2018-01-29] MEDS ORDERED: LISINOPRIL20 MG PO (14:40)
[2018-01-29] MEDS ORDERED: NICOTINE PATCH1 EAC2 TD (14:40)
[2018-01-29] MEDS ORDERED: DULERA 100 MCG/13 GM IH (14:40)
[2018-01-29] MEDS ORDERED: XARELTO1 EACH PO (14:54)
[2018-01-29] MEDS ORDERED: PREDNISONE10 MG PO (14:54)
[2018-01-29] MEDS ORDERED: CEFTIN500 MG PO (14:55)
[2018-01-29] MEDS ORDERED: PROAIR HFA8.5 GM IH (14:55)
[2018-01-30 00:06] VITALS: BP 133/88
[2018-01-30 04:27] VITALS: BP 146/88
[2018-01-30 07:50] VITALS: BP 127/78
[2018-01-30 12:12] VITALS: BP 131/77
[2018-01-30 16:24] VITALS: BP 141/90
== END 2018-01-30 16:26 | disposition home or self-care (01) | DRG 190 ==
LOC: EME → EDBD 20:42 → EME 20:42 → 4EAST 01-25 01:37 → EDOF 01-25 01:37 → ENRESERV 01-25 01:40 → EDOF 01-25 02:26 → ENRESERV 01-25 02:27 → 4EAST 01-25 04:51 → ENRESERV 01-29 04:51 → 5SOUTH 01-29 05:57 → ENPENDDIS 01-30 15:44 → 5SOUTH 01-30 16:26
PROVIDERS: Emergency Medicine; Hospitalist
DX: J44.1 Chronic obstructive pulmonary disease with (acute) exacerbation (principal); J96.01 Acute respiratory failure with hypoxia; I26.99 Other pulmonary embolism without acute cor pulmonale; F10.231 Alcohol dependence with withdrawal delirium; E87.2 Acidosis; D69.59 Other secondary thrombocytopenia; E87.6 Hypokalemia; J44.0 Chronic obstructive pulmonary disease with (acute) lower respiratory infection; J20.9 Acute bronchitis, unspecified; I10 Essential (primary) hypertension; F12.10 Cannabis abuse, uncomplicated; F14.10 Cocaine abuse, uncomplicated; F17.210 Nicotine dependence, cigarettes, uncomplicated; E66.9 Obesity, unspecified; Z68.36 Body mass index [BMI] 36.0-36.9, adult; Z59.0 Homelessness
CPT/HCPCS: 36600; 71045; 71275; 73610; 80048; 80053; 81003; 82803; 82948; 83605; 83735; 83880; 84484; 84550; 85027; 85610; 85651; 85730; 86140; 87040; 87070; 87205; 93005; 93970; 94640; 94640 76; 94644; 94760; 94799; 99202; 99281; 99285; J0295; J1956; J2060; J2405; J2930; J7030; J7050; J7512

== ENCOUNTER 2018-02-12 07:19 | Inpatient (IN) | payer OTHER ==
[~2018-02-12] VITALS: Ht 170.2 cm; Wt 87.2 kg
[~2018-02-12 07:19] MED LIST changes: +CEFTIN500 MG PO; +DULERA 100 MCG/13 GM IH; +LISINOPRIL20 MG PO; +NICOTINE PATCH1 EAC2 TD; +PROAIR HFA8.5 GM IH; +XARELTO1 EACH PO
[2018-02-12 08:04] LABS: BASOPHIL (%) 0.2 % (0-1); EOSINOPHIL (%) 0.5 % (0-5); HEMATOCRIT 42.5 % (38.0-50.0); HEMOGLOBIN 14.2 G/DL (12.5-16.6); IMMATURE GRANULOCYTE (%) 0.2 % (0.0-0.7); LYMPHOCYTE (%) 10.8 % (15-42); MCH 32.6 PG (29.0-34.0); MCHC 33.4 G/DL (30.0-36.0); MCV 97.5 FL (86-99); MONOCYTE (%) 7.3 % (3-12); MONOCYTE COUNT 0.6 K/uL (0-0.8); NEUTROPHIL COUNT 7.1 K/uL (1.8-6.4); RBC DIS.WIDTH-CV 14.6 % (11.8-14.6); RBC DIS.WIDTH-SD 52.9 % (39-53); RED BLOOD COUNT 4.36 M/uL (4.00-5.50); WHITE BLOOD COUNT 8.8 K/uL (4.1-10.2)
[2018-02-12 08:12] LABS: PLATELET COUNT 154 K/uL (156-360)
[2018-02-12 08:48] LABS: CHLORIDE 96 MEQ/L (99-109); SODIUM 137 MEQ/L (136-147)
[2018-02-12 08:54] LABS: CREATININE 0.7 MG/DL (0.6-1.3); GFR ESTIMATE (CALCULATED) > 59 mL/min/ (58.99-99999); GLUCOSE 108 mg/dL (70-99); UREA NITROGEN (BUN) 8 mg/dL (9-23)
[2018-02-12 09:48] LABS: TROP-I INTERPRETATION NEGATIVE; TROPONIN-I 0.04 ng/mL (0.0-0.30)
[2018-02-12] MEDS ORDERED: LISINOPRIL20 MG PO (12:14)
[2018-02-12] MEDS ORDERED: XARELTO1 EACH PO (12:16)
[2018-02-12 12:21] LABS: INTER. NORMALIZED RATIO 1.1
[2018-02-12] MEDS ORDERED: PREDNISONE10 MG PO (12:21)
[2018-02-12 12:48] LABS: PTT 184.9 SEC (25-37)
[2018-02-12 15:08] VITALS: BP 145/80
[2018-02-12 17:43] LABS: TROP-I INTERPRETATION NEGATIVE; TROPONIN-I 0.03 ng/mL (0.0-0.30)
[2018-02-12 19:27] VITALS: BP 139/84
[2018-02-12 23:18] VITALS: BP 134/79
[2018-02-13 01:21] LABS: TROP-I INTERPRETATION NEGATIVE; TROPONIN-I 0.02 ng/mL (0.0-0.30)
[2018-02-13 04:13] VITALS: BP 127/72
[2018-02-13 06:45] LABS: HEMATOCRIT 42.9 % (38.0-50.0); HEMOGLOBIN 13.6 G/DL (12.5-16.6); MCH 31.7 PG (29.0-34.0); MCHC 31.7 G/DL (30.0-36.0); PLATELET COUNT 131 K/uL (156-360); RBC DIS.WIDTH-CV 14.3 % (11.8-14.6); RBC DIS.WIDTH-SD 53.4 % (39-53); RED BLOOD COUNT 4.29 M/uL (4.00-5.50); WHITE BLOOD COUNT 4.5 K/uL (4.1-10.2)
[2018-02-13 07:10] LABS: CHLORIDE 98 MEQ/L (99-109); CREATININE 0.7 MG/DL (0.6-1.3); GFR ESTIMATE (CALCULATED) > 59 mL/min/ (58.99-99999); GLUCOSE 140 mg/dL (70-99); HDL CHOLESTEROL 112 MG/DL (Desirable>=40); LDL CHOLESTEROL 59 mg/dL (Desirable<100); NON-HDL CHOLESTEROL 72 mg/dL (Desirable<160); POTASSIUM 4.8 MEQ/L (3.7-5.4); SODIUM 138 MEQ/L (136-147); TOTAL CHOLESTEROL 184 mg/dL (Desirable<200); TRIGLYCERIDES 64 MG/DL (Normal: <150); UREA NITROGEN (BUN) 8 mg/dL (9-23)
[2018-02-13 11:59] VITALS: BP 127/80
[2018-02-13 16:03] VITALS: BP 132/77
[2018-02-13 19:45] VITALS: BP 128/77
[2018-02-13 23:05] VITALS: BP 135/95
[2018-02-14] VITALS (7 sets, daily range): BP systolic 113–170; BP diastolic 75–102
[2018-02-14 05:45] LABS: HEMATOCRIT 42.1 % (38.0-50.0); HEMOGLOBIN 13.3 G/DL (12.5-16.6); MCH 32.6 PG (29.0-34.0); MCHC 31.6 G/DL (30.0-36.0); MCV 103.2 FL (86-99); PLATELET COUNT 113 K/uL (156-360); RBC DIS.WIDTH-CV 14.4 % (11.8-14.6); RBC DIS.WIDTH-SD 54.7 % (39-53); RED BLOOD COUNT 4.08 M/uL (4.00-5.50); WHITE BLOOD COUNT 7.1 K/uL (4.1-10.2)
[2018-02-14 06:14] LABS: CHLORIDE 99 MEQ/L (99-109); CREATININE 0.7 MG/DL (0.6-1.3); GFR ESTIMATE (CALCULATED) > 59 mL/min/ (58.99-99999); GLUCOSE 161 mg/dL (70-99); POTASSIUM 4.6 MEQ/L (3.7-5.4); SODIUM 141 MEQ/L (136-147); UREA NITROGEN (BUN) 6 mg/dL (9-23)
[2018-02-15 03:25] VITALS: BP 143/67
[2018-02-15 06:18] LABS: CHLORIDE 101 MEQ/L (99-109); CREATININE 0.7 MG/DL (0.6-1.3); GFR ESTIMATE (CALCULATED) > 59 mL/min/ (58.99-99999); POTASSIUM 3.9 MEQ/L (3.7-5.4); SODIUM 143 MEQ/L (136-147); UREA NITROGEN (BUN) 5 mg/dL (9-23)
[2018-02-15 06:24] LABS: GLUCOSE 98 mg/dL (70-99)
[2018-02-15 08:14] VITALS: BP 168/96
[2018-02-15 12:00] VITALS: BP 175/96
[2018-02-15 19:02] VITALS: BP 187/93
[2018-02-16 03:50] VITALS: BP 185/105
[2018-02-16 05:03] VITALS: BP 157/83
[2018-02-16 05:40] LABS: CHLORIDE 101 MEQ/L (99-109); CREATININE 0.7 MG/DL (0.6-1.3); GFR ESTIMATE (CALCULATED) > 59 mL/min/ (58.99-99999); GLUCOSE 98 mg/dL (70-99); POTASSIUM 3.9 MEQ/L (3.7-5.4); SODIUM 142 MEQ/L (136-147); UREA NITROGEN (BUN) 6 mg/dL (9-23)
[2018-02-16 08:00] VITALS: BP 167/90
[2018-02-16 18:18] LABS: APPEARANCE CLEAR ((CLEAR)); BILIRUBIN NEGATIVE; BLOOD NEGATIVE; COLOR STRAW ((YELLOW)); GLUCOSE (STRIP) NEGATIVE; KETONES NEGATIVE; LEUKOCYTES NEGATIVE; NITRITE NEGATIVE; PROTEIN (STRIP) NEGATIVE; SPECIFIC GRAVITY 1.003 (1.000-1.030); UROBILINOGEN 0.2 MG/DL (0.2-1.0)
[2018-02-16 20:00] VITALS: BP 175/91
[2018-02-16 23:19] VITALS: BP 145/78
[2018-02-17 03:27] VITALS: BP 175/93
[2018-02-17 05:00] VITALS: BP 130/75
[2018-02-17 05:48] LABS: HEMATOCRIT 39.1 % (38.0-50.0); HEMOGLOBIN 12.8 G/DL (12.5-16.6); MCH 32.4 PG (29.0-34.0); MCHC 32.7 G/DL (30.0-36.0); PLATELET COUNT 92 K/uL (156-360); RBC DIS.WIDTH-CV 14.2 % (11.8-14.6); RBC DIS.WIDTH-SD 52.1 % (39-53); RED BLOOD COUNT 3.95 M/uL (4.00-5.50); WHITE BLOOD COUNT 7.1 K/uL (4.1-10.2)
[2018-02-17 05:50] LABS: CHLORIDE 101 MEQ/L (99-109); CREATININE 0.7 MG/DL (0.6-1.3); GFR ESTIMATE (CALCULATED) > 59 mL/min/ (58.99-99999); GLUCOSE 96 mg/dL (70-99); POTASSIUM 3.8 MEQ/L (3.7-5.4); SODIUM 141 MEQ/L (136-147); UREA NITROGEN (BUN) 6 mg/dL (9-23)
[2018-02-17 12:31] VITALS: BP 192/93
[2018-02-17 15:00] VITALS: BP 179/102
[2018-02-17] MEDS ORDERED: Thiamine,Vitamin B1 PO (15:00)
[2018-02-17] MEDS ORDERED: FOLIC ACID1 MG PO (15:00)
[2018-02-17] MEDS ORDERED: AMLODIPINE BESYL5 MG PO (15:00)
[2018-02-17] MEDS ORDERED: VENTOLIN HFA18 GM IH (15:10)
== END 2018-02-17 15:19 | disposition home or self-care (01) | DRG 191 ==
LOC: EME 07:19 → EDOF 10:32 → 4EAST 10:32 → ENRESERV 10:34 → 4EAST 14:37
PROVIDERS: Emergency Medicine; Hospitalist; Internal Medicine
DX: J44.9 Chronic obstructive pulmonary disease, unspecified (principal); F32.9 Major depressive disorder, single episode, unspecified; F41.9 Anxiety disorder, unspecified; I82.442 Acute embolism and thrombosis of left tibial vein; Z86.711 Personal history of pulmonary embolism; Z91.14 Patient's other noncompliance with medication regimen; F17.210 Nicotine dependence, cigarettes, uncomplicated; F10.20 Alcohol dependence, uncomplicated; I10 Essential (primary) hypertension; F12.90 Cannabis use, unspecified, uncomplicated; R94.31 Abnormal electrocardiogram [ECG] [EKG]; Z59.0 Homelessness; I70.0 Atherosclerosis of aorta; I27.20 Pulmonary hypertension, unspecified; Z79.01 Long term (current) use of anticoagulants; Z79.899 Other long term (current) drug therapy
CPT/HCPCS: 71045; 78452; 80048; 80061; 81003; 82948; 83735; 83880; 84484; 85025; 85027; 85610; 85730; 93005; 93017; 93306; 93970; 94640; 94640 76; 94760; 94799; 99281; 99285; A9500; J2785; J2930; J3411; J3475; J7030; J7512

== ENCOUNTER 2018-03-03 06:28 | Inpatient (IN) | payer OTHER ==
[~2018-03-03] VITALS: Ht 165.1 cm; Wt 81.8 kg
[~2018-03-03 06:28] MED LIST changes: +AMLODIPINE BESYL5 MG PO; +VENTOLIN HFA18 GM IH
[2018-03-03 08:32] LABS: BASOPHIL (%) 0.4 % (0-1); BASOPHIL COUNT 0.1 K/uL (0-0.1); EOSINOPHIL (%) 0.1 % (0-5); HEMATOCRIT 44.6 % (38.0-50.0); LYMPHOCYTE (%) 4.9 % (15-42); LYMPHOCYTE COUNT 0.7 K/uL (1.0-2.8); MCH 33.1 PG (29.0-34.0); MCHC 35.2 G/DL (30.0-36.0); MONOCYTE (%) 4.6 % (3-12); MONOCYTE COUNT 0.7 K/uL (0-0.8); NEUTROPHIL COUNT 13.1 K/uL (1.8-6.4); PLATELET COUNT 72 K/uL (156-360); RBC DIS.WIDTH-CV 13.8 % (11.8-14.6); RBC DIS.WIDTH-SD 48.1 % (39-53); WHITE BLOOD COUNT 14.7 K/uL (4.1-10.2)
[2018-03-03 08:33] LABS: HEMOGLOBIN 15.7 G/DL (12.5-16.6); MCV 93.9 FL (86-99); RED BLOOD COUNT 4.75 M/uL (4.00-5.50)
[2018-03-03 09:01] LABS: CHLORIDE 98 MEQ/L (99-109); CREATININE 0.6 MG/DL (0.6-1.3); GFR ESTIMATE (CALCULATED) > 59 mL/min/ (58.99-99999); GLUCOSE 75 mg/dL (70-99); SODIUM 140 MEQ/L (136-147); UREA NITROGEN (BUN) 8 mg/dL (9-23)
[2018-03-03] MEDS ORDERED: MOTRIN400 MG PO (10:15)
[2018-03-03 12:13] LABS: MAGNESIUM 1.5 mg/dl (1.3-2.7)
[2018-03-03 14:48] VITALS: BP 169/101
[2018-03-03 18:21] VITALS: BP 153/77
[2018-03-03 19:54] VITALS: BP 183/97
[2018-03-03 22:00] VITALS: BP 182/115
[2018-03-03 23:04] VITALS: BP 137/91
[2018-03-04 04:32] VITALS: BP 141/96
[2018-03-04 05:16] LABS: HEMATOCRIT 42.5 % (38.0-50.0); HEMOGLOBIN 14.3 G/DL (12.5-16.6); MCH 32.6 PG (29.0-34.0); MCHC 33.6 G/DL (30.0-36.0); MCV 96.8 FL (86-99); PLATELET COUNT 54 K/uL (156-360); RBC DIS.WIDTH-CV 13.7 % (11.8-14.6); RBC DIS.WIDTH-SD 49.2 % (39-53); RED BLOOD COUNT 4.39 M/uL (4.00-5.50); WHITE BLOOD COUNT 7.2 K/uL (4.1-10.2)
[2018-03-04 05:47] LABS: CHLORIDE 104 MEQ/L (99-109); CREATININE 0.5 MG/DL (0.6-1.3); GFR ESTIMATE (CALCULATED) > 59 mL/min/ (58.99-99999); GLUCOSE 88 mg/dL (70-99); POTASSIUM 3.9 MEQ/L (3.7-5.4); SODIUM 138 MEQ/L (136-147); UREA NITROGEN (BUN) 7 mg/dL (9-23)
[2018-03-04 07:48] VITALS: BP 167/110
[2018-03-04 10:09] LABS: HEMOGLOBIN A1c (GLYCOHEMOGLOB) 4.9 % (Below 5.7)
[2018-03-04 12:11] VITALS: BP 153/109
[2018-03-04 16:13] VITALS: BP 143/96
[2018-03-04 19:43] VITALS: BP 144/85
[2018-03-04 23:44] VITALS: BP 133/81
[2018-03-05 04:03] VITALS: BP 130/87
[2018-03-05 07:28] LABS: BASOPHIL (%) 0.5 % (0-1); EOSINOPHIL (%) 3.2 % (0-5); EOSINOPHIL COUNT 0.2 K/uL (0-0.3); HEMATOCRIT 41.5 % (38.0-50.0); HEMOGLOBIN 14.1 G/DL (12.5-16.6); IMMATURE GRANULOCYTE (%) 0.3 % (0.0-0.7); LYMPHOCYTE (%) 12.9 % (15-42); LYMPHOCYTE COUNT 0.9 K/uL (1.0-2.8); MCH 32.4 PG (29.0-34.0); MCV 95.4 FL (86-99); MONOCYTE (%) 7.8 % (3-12); MONOCYTE COUNT 0.5 K/uL (0-0.8); NEUTROPHIL (%) 75.3 % (45-76); PLATELET COUNT 61 K/uL (156-360); RBC DIS.WIDTH-CV 13.2 % (11.8-14.6); RBC DIS.WIDTH-SD 46.6 % (39-53); RED BLOOD COUNT 4.35 M/uL (4.00-5.50); WHITE BLOOD COUNT 6.7 K/uL (4.1-10.2)
[2018-03-05 07:53] VITALS: BP 157/97
[2018-03-05 08:05] LABS: ALBUMIN 3.1 G/DL (3.2-4.8); ALKALINE PHOSPHATASE 59 IU/L (3-129); ALT (GPT) 22 IU/L (3-49); AST (GOT) 20 IU/L (2-34); CHLORIDE 104 MEQ/L (99-109); CREATININE 0.6 MG/DL (0.6-1.3); GFR ESTIMATE (CALCULATED) > 59 mL/min/ (58.99-99999); GLUCOSE 95 mg/dL (70-99); POTASSIUM 3.5 MEQ/L (3.7-5.4); SODIUM 139 MEQ/L (136-147); TOTAL BILIRUBIN 1.5 MG/DL (0.0-1.0); TOTAL PROTEIN 4.8 G/DL (6.4-8.3); UREA NITROGEN (BUN) 6 mg/dL (9-23)
[2018-03-05 08:45] VITALS: BP 148/84
[2018-03-05 11:52] VITALS: BP 135/86
[2018-03-05 16:16] VITALS: BP 132/93
[2018-03-05 20:29] VITALS: BP 131/76
[2018-03-06 00:28] VITALS: BP 133/77
[2018-03-06 04:11] VITALS: BP 131/86
[2018-03-06 06:17] LABS: BASOPHIL (%) 0.5 % (0-1); EOSINOPHIL (%) 3.4 % (0-5); EOSINOPHIL COUNT 0.2 K/uL (0-0.3); HEMATOCRIT 41.5 % (38.0-50.0); HEMOGLOBIN 14.2 G/DL (12.5-16.6); IMMATURE GRANULOCYTE (%) 0.2 % (0.0-0.7); LYMPHOCYTE (%) 18.1 % (15-42); LYMPHOCYTE COUNT 1.1 K/uL (1.0-2.8); MCH 32.5 PG (29.0-34.0); MCHC 34.2 G/DL (30.0-36.0); MONOCYTE (%) 8.5 % (3-12); MONOCYTE COUNT 0.5 K/uL (0-0.8); NEUTROPHIL (%) 69.3 % (45-76); NEUTROPHIL COUNT 4.1 K/uL (1.8-6.4); PLATELET COUNT 76 K/uL (156-360); RBC DIS.WIDTH-CV 12.8 % (11.8-14.6); RBC DIS.WIDTH-SD 45.1 % (39-53); RED BLOOD COUNT 4.37 M/uL (4.00-5.50); WHITE BLOOD COUNT 5.9 K/uL (4.1-10.2)
[2018-03-06 06:51] LABS: ALBUMIN 3.1 G/DL (3.2-4.8); ALKALINE PHOSPHATASE 51 IU/L (3-129); ALT (GPT) 22 IU/L (3-49); AST (GOT) 23 IU/L (2-34); CHLORIDE 107 MEQ/L (99-109); CREATININE 0.5 MG/DL (0.6-1.3); GFR ESTIMATE (CALCULATED) > 59 mL/min/ (58.99-99999); GLUCOSE 85 mg/dL (70-99); POTASSIUM 3.6 MEQ/L (3.7-5.4); SODIUM 140 MEQ/L (136-147); TOTAL PROTEIN 4.9 G/DL (6.4-8.3); UREA NITROGEN (BUN) 4 mg/dL (9-23)
[2018-03-06 07:47] VITALS: BP 157/93
[2018-03-06 10:27] LABS: MAGNESIUM 1.5 mg/dl (1.3-2.7)
[2018-03-06 12:47] VITALS: BP 132/87
[2018-03-06 16:41] VITALS: BP 137/71
[2018-03-06 20:00] VITALS: BP 142/84
[2018-03-07] VITALS (7 sets, daily range): BP systolic 123–195; BP diastolic 81–102
[2018-03-07 05:58] LABS: BASOPHIL (%) 0.4 % (0-1); EOSINOPHIL (%) 1.9 % (0-5); EOSINOPHIL COUNT 0.1 K/uL (0-0.3); HEMATOCRIT 43.5 % (38.0-50.0); HEMOGLOBIN 14.7 G/DL (12.5-16.6); IMMATURE GRANULOCYTE (%) 0.4 % (0.0-0.7); LYMPHOCYTE (%) 19.9 % (15-42); LYMPHOCYTE COUNT 1.1 K/uL (1.0-2.8); MCH 31.5 PG (29.0-34.0); MCHC 33.8 G/DL (30.0-36.0); MCV 93.3 FL (86-99); MONOCYTE (%) 10.2 % (3-12); MONOCYTE COUNT 0.6 K/uL (0-0.8); NEUTROPHIL (%) 67.2 % (45-76); NEUTROPHIL COUNT 3.8 K/uL (1.8-6.4); PLATELET COUNT 95 K/uL (156-360); RBC DIS.WIDTH-CV 12.6 % (11.8-14.6); RBC DIS.WIDTH-SD 43.8 % (39-53); RED BLOOD COUNT 4.66 M/uL (4.00-5.50); WHITE BLOOD COUNT 5.7 K/uL (4.1-10.2)
[2018-03-07 06:36] LABS: ALBUMIN 3.3 G/DL (3.2-4.8); ALKALINE PHOSPHATASE 54 IU/L (3-129); ALT (GPT) 34 IU/L (3-49); CHLORIDE 104 MEQ/L (99-109); CREATININE 0.5 MG/DL (0.6-1.3); GFR ESTIMATE (CALCULATED) > 59 mL/min/ (58.99-99999); POTASSIUM 4.1 MEQ/L (3.7-5.4); SODIUM 134 MEQ/L (136-147); TOTAL BILIRUBIN 0.8 MG/DL (0.0-1.0); TOTAL PROTEIN 5.4 G/DL (6.4-8.3); UREA NITROGEN (BUN) 3 mg/dL (9-23)
[2018-03-07 06:41] LABS: AST (GOT) 43 IU/L (2-34); GLUCOSE 119 mg/dL (70-99)
[2018-03-08] VITALS: BP 131/86
[2018-03-08 04:00] VITALS: BP 121/83
[2018-03-08 05:57] LABS: HEMOGLOBIN 14.9 G/DL (12.5-16.6); MCH 31.6 PG (29.0-34.0); MCHC 33.9 G/DL (30.0-36.0); MCV 93.4 FL (86-99); PLATELET COUNT 94 K/uL (156-360); RBC DIS.WIDTH-CV 12.4 % (11.8-14.6); RBC DIS.WIDTH-SD 43.2 % (39-53); RED BLOOD COUNT 4.71 M/uL (4.00-5.50); WHITE BLOOD COUNT 5.6 K/uL (4.1-10.2)
[2018-03-08 06:23] LABS: BASOPHIL (%) 0.2 % (0-1); EOSINOPHIL (%) 2.2 % (0-5); EOSINOPHIL COUNT 0.1 K/uL (0-0.3); IMMATURE GRANULOCYTE (%) 0.4 % (0.0-0.7); LYMPHOCYTE (%) 22.2 % (15-42); LYMPHOCYTE COUNT 1.2 K/uL (1.0-2.8); MONOCYTE (%) 11.9 % (3-12); MONOCYTE COUNT 0.7 K/uL (0-0.8); NEUTROPHIL (%) 63.1 % (45-76); NEUTROPHIL COUNT 3.5 K/uL (1.8-6.4)
[2018-03-08 06:41] LABS: ALBUMIN 3.5 G/DL (3.2-4.8); ALKALINE PHOSPHATASE 54 IU/L (3-129); ALT (GPT) 44 IU/L (3-49); AST (GOT) 45 IU/L (2-34); CHLORIDE 103 MEQ/L (99-109); CREATININE 0.6 MG/DL (0.6-1.3); GFR ESTIMATE (CALCULATED) > 59 mL/min/ (58.99-99999); GLUCOSE 108 mg/dL (70-99); POTASSIUM 3.9 MEQ/L (3.7-5.4); SODIUM 137 MEQ/L (136-147); TOTAL PROTEIN 5.4 G/DL (6.4-8.3); UREA NITROGEN (BUN) 6 mg/dL (9-23)
[2018-03-08 06:43] LABS: TOTAL BILIRUBIN 0.6 MG/DL (0.0-1.0)
[2018-03-08 07:35] VITALS: BP 148/90
[2018-03-08] MEDS ORDERED: NICOTINE PATCH1 EAC2 TD (11:34)
[2018-03-08] MEDS ORDERED: FOLIC ACID1 MG PO (11:34)
[2018-03-08] MEDS ORDERED: THERAGRAN1 TABLET PO (11:34)
[2018-03-08] MEDS ORDERED: AMLODIPINE BESY10 MG PO (11:34)
[2018-03-08] MEDS ORDERED: SPIRIVA RESPIMAT4 GM IH (11:34)
[2018-03-08] MEDS ORDERED: LAMISIL250 MG PO (11:34)
[2018-03-08] MEDS ORDERED: Thiamine,Vitamin B1 PO (11:34)
[2018-03-08] MEDS ORDERED: XARELTO15 MG PO (11:34)
[2018-03-08] MEDS ORDERED: LOPRESSOR25 MG PO (11:34)
[2018-03-08] MEDS ORDERED: Zeasorb Antifungal T TP (11:34)
[2018-03-08] MEDS ORDERED: VALACYCLOVIR500 MG PO (11:34)
[2018-03-08] MEDS ORDERED: XARELTO20 MG PO (11:39)
== END 2018-03-08 13:18 | disposition home or self-care (01) | DRG 871 ==
LOC: EME 06:28 → 5SOUTH 09:39 → EDOF 09:39 → CANRESERV 09:40 → ENRESERV 09:40 → 5SOUTH 14:26
PROVIDERS: Emergency Medicine; Hospitalist; Internal Medicine; Physician Assistant
DX: A41.9 Sepsis, unspecified organism (principal); L03.319 Cellulitis of trunk, unspecified; L03.115 Cellulitis of right lower limb; L03.315 Cellulitis of perineum; J96.01 Acute respiratory failure with hypoxia; L30.4 Erythema intertrigo; N48.1 Balanitis; B87.0 Cutaneous myiasis; N48.5 Ulcer of penis; I88.9 Nonspecific lymphadenitis, unspecified; J44.9 Chronic obstructive pulmonary disease, unspecified; R73.9 Hyperglycemia, unspecified; F10.239 Alcohol dependence with withdrawal, unspecified; I10 Essential (primary) hypertension; D69.6 Thrombocytopenia, unspecified; B35.9 Dermatophytosis, unspecified; H10.023 Other mucopurulent conjunctivitis, bilateral; F32.9 Major depressive disorder, single episode, unspecified; F41.9 Anxiety disorder, unspecified; F17.200 Nicotine dependence, unspecified, uncomplicated; F12.90 Cannabis use, unspecified, uncomplicated; Z56.0 Unemployment, unspecified; Z86.711 Personal history of pulmonary embolism; Z86.718 Personal history of other venous thrombosis and embolism; Z79.01 Long term (current) use of anticoagulants; Z91.14 Patient's other noncompliance with medication regimen; Z71.6 Tobacco abuse counseling
CPT/HCPCS: 71045; 74176; 80048; 80053; 82948; 83036; 83605; 83735; 85025; 85027; 85610; 87040; 93005; 94640; 94640 76; 94799; 99202; 99281; 99285; J1815; J2060; J2543; J3010; J3411; J3475; J7030; J7050

== ENCOUNTER 2018-05-14 11:33 | Emergency (ER) | payer OTHER ==
[~2018-05-14] VITALS: Ht 165.1 cm; Wt 77.4 kg
[~2018-05-14 11:33] MED LIST changes: +AMLODIPINE BESY10 MG PO; +LAMISIL250 MG PO; +LOPRESSOR25 MG PO; +MOTRIN400 MG PO; +VALACYCLOVIR500 MG PO; +XARELTO15 MG PO; +XARELTO20 MG PO; +Zeasorb Antifungal T TP
[2018-05-14 12:30] LABS: HEMATOCRIT 39.6 % (38.0-50.0); HEMOGLOBIN 13.9 G/DL (12.5-16.6); MCHC 35.1 G/DL (30.0-36.0); RBC DIS.WIDTH-CV 13.2 % (11.8-14.6); RBC DIS.WIDTH-SD 44.9 % (39-53); RED BLOOD COUNT 4.35 M/uL (4.00-5.50); WHITE BLOOD COUNT 5.2 K/uL (4.1-10.2)
[2018-05-14 12:32] LABS: PTT 25.3 SEC (25-37)
[2018-05-14 13:05] LABS: IMM.PLATELET FRACTION 10.3 (1-7); PLAT.SUFFICIENCY DECREASED; PLATELET COUNT 47 K/uL (156-360)
[2018-05-14 13:15] LABS: ALBUMIN 3.8 G/DL (3.2-4.8); ALKALINE PHOSPHATASE 75 IU/L (3-129); ALT (GPT) 48 IU/L (3-49); AST (GOT) 82 IU/L (2-34); CHLORIDE 99 MEQ/L (99-109); CREATININE 0.7 MG/DL (0.6-1.3); GFR ESTIMATE (CALCULATED) > 59 mL/min/ (58.99-99999); GLUCOSE 145 mg/dL (70-99); POTASSIUM 3.3 MEQ/L (3.7-5.4); SERUM ETHYL ALCOHOL < 10 mg/dL; SODIUM 139 MEQ/L (136-147); TOTAL BILIRUBIN 2.4 MG/DL (0.0-1.0); UREA NITROGEN (BUN) 5 mg/dL (9-23)
[2018-05-14 14:57] VITALS: BP 170/84
== END 2018-05-14 15:00 | disposition home or self-care (01) ==
LOC: EME 11:33
PROVIDERS: Emergency Medicine
DX: R56.9 Unspecified convulsions (principal); F10.10 Alcohol abuse, uncomplicated; Y90.0 Blood alcohol level of less than 20 mg/100 ml; F32.9 Major depressive disorder, single episode, unspecified; F41.9 Anxiety disorder, unspecified; Z86.711 Personal history of pulmonary embolism; Z86.718 Personal history of other venous thrombosis and embolism; F17.200 Nicotine dependence, unspecified, uncomplicated
CPT/HCPCS: 70450; 80053; 85027; 85610; 85730; 99281; 99284; G0480